=== PATIENT | female | born 2000 | race Caucasian/White ===

== ENCOUNTER 2021-02-21 18:02 | Emergency (ER) | payer SELFPAY ==
[~2021-02-21] VITALS: Ht 162.6 cm; Wt 71.7 kg
--- NOTE | 2021-02-21 18:40 | NUR ---
URINE COLLECTED AND SENT TO THE LAB
--- NOTE | 2021-02-21 18:40 | NUR ---
[id number] PASSED OUT IN A DRIVEWAY, UNRESPONSIVE. 4MG NARCAN INTRANASAL AND 2MG NARCAN IV GIVEN. PT AWAKE NET COORDINATOR. 5 WKS PREG. NO PREG RELATED COMPLAIN. DENIES PAIN. IN ROOM AIR AND DENIES SOB. RESPIRATION REGULAR AND UNLABORED. WILL CONTINUE TO MONITOR THE PATIENT.
--- NOTE | 2021-02-21 19:26 | NUR ---
PATIENT AMBULATORY WITH STEADY GAIT. NO DISTRESS NOTED. KEPT COMFORTABLE IN BED.
--- NOTE | 2021-02-21 19:40 | NUR ---
PER FAMILY PT. IS 20 WEEKS . CONTACT SISTER WHEN READY TO DISCHARGE. [phone] NNAMDI.
--- NOTE | 2021-02-21 21:20 | NUR ---
IV removed. Catheter intact and site benign. Pressure and 4x4 applied to site. No bleeding noted.
--- NOTE | 2021-02-21 21:22 | NUR ---
Patient discharged to home in stable condition. Written and verbal after care instructions given. Patient verbalizes understanding of instruction. Pt picked up by family.
[2021-02-21 21:23] VITALS: BP 121/76
== END 2021-02-21 21:24 | disposition home or self-care (01) ==
LOC: EDSEX 18:14 → ER 18:14
DX: O9A.212 Injury, poisoning and certain other consequences of external causes complicating pregnancy, second trimester (principal); T40.1X1A Poisoning by heroin, accidental (unintentional), initial encounter; Z3A.20 20 weeks gestation of pregnancy; Y92.89 Other specified places as the place of occurrence of the external cause